=== PATIENT | male | born 1960 | race Caucasian/White ===

== ENCOUNTER 2018-12-01 09:00 | Outpatient (RCR) | payer OTHER, SELFPAY ==
--- NOTE | 2018-10-26 11:15 | HP.OTEVAL_ITS ---
Patient's Visit Information CORWIN REDD Jr. is a 58 year old M, referred to Occupational Therapy by LEMUEL BLACKWELL, with a diagnosis of left IF laceration of FDS/FDP. Date of Evaluation: 10/19/18 Occupational Therapist: Susan Cruz, MARIA ELENAR/L, CHT - Subjective Subjective: Pt states on 2018, pt was replacing a motor and his left digits were pinched between metal of a motor - slicing left IF. pts sx repair of zone 2 FDS/FDP and pully was on 10/06/18. pt currently 2 weeks s/p- pt arrives with dorsal blocking orthosis. pt works at [employer]. Pt is hopeful to regain his full ROM and return work. - ADLs Dressing: Button shirt, Pants Fasteners: Buttons, Zippers, [place] Eating: Use silverware, Cut food Bathing: Handle washcloth & soap, Wash hair, Squeeze shampoo bottle Toileting: Manage clothing Grooming: Trim roberts, Squeeze toothpaste on, [place] teeth Comments: it doing all meal prep tasks Comments: due to restrictions and healing tendon repair- pt requires assist with ADLs and IADLs at this time. - Pain left hand 0 Pain Intensity Range: 0, 4, 5 - Objective Objective/Observation: healing incision- clean and dry - ROM MP: left IF 70 right 0/85 PIP: left IF 0/30 left 0/90 DIP: left IF 0/10 right 0/45 - Strength Strength Comments: Not tested at this time - Edema PIP: right IF 6.5 left 7.8 - Sensation Sensation Comments: over incision - Quick DASH-Disab of Arm,Shoulder& Hand Quick DASH Score: 63.3325 - Goals Goal:100% adherence to protocol: Yes Comment: FDS/FDP zone 2 Goal:Daily scar massage when approriate: Yes Goal:ROM equal to unaffected hand: Yes Goal:[employer] Goods Fabricator/Pinch strength at least 75% of unaffected hand: Yes Goal:No pain with affected hand use: Yes Goal:PIP Circumferences equal to unaffected hand: Yes Goal:Full use of affected hand in daily activities including: Yes Goal:Decrease scar hypersensitivity: Yes - Rehabilitation General Assessment: pt is currently 2 weeks s/p from a left IF FDS/FDP and pully reconstruction zone 2. incision is clean and dry- sutures on ulnar side and steri strips on radial side intact. pt demo with edeam and limted ROM to use left UE for ADLs and IADLS. Dr. riley sanderson/alpa, AAROM, AROM digits, edema reduction techniques, desensitization/sensory retraining and scar management- Dorsal blocking orthosis for 6 weeks, cut down to wrist at 4 weeks s/p. Pt would benefit from skilled OTR/L, CHT services 2x week for 6 weeks to insturct pt in tendon repair protocol, and ed. pt on AAROM, AROM of digits, scar mtg and when able PRE to reuturn pt to PLOF. Today pt was ed. on AAROM, AROM and edema control viktor. pt demo understanding of ex. Therapist will follow zone 2 FDS/FDP protocol to return pt to PLOF. Rehabilitation Potential: Excellent - Anticipated Interventions Anticipated Interventions: Early Active Motion, A/AAROM/PROM, Strengthening, Edema Control, Scar Care, Massage, Triggerpoint Release, Desensitization, Sensory Retraining, Wound Care, Modalities, Orthoses, Fine Motor Coord/Gerardo - Visit Plan Frequency: 3x /Week Duration: 4 Months TEXT: Thank you for the opportunity to evaluate your patient. For Medicare and Medicare HMO plans, please review the plan of care and approve it. It will need to be FAXED BACK to us at [phone] for Medicare purposes. Please let me know if there are questions or concerns regarding this plan of care. Physician Signature: Date:
--- NOTE | 2018-11-08 12:25 | HP.OTREVAL ---
LEMUEL BLACKWELL, It has been my pleasure to treat CORWIN REDD . over the last 5 visits for left IF laceration of FDS/FDP. Please see the progress note below for an update on the occupational therapy plan of care! Subjective: pt arrives following a week without therapy. Pt now 4 weeks 5 days s/p A2 pully and FDP/FDS repair. pt states compliance with ROM and use of orthosis- pt states he feels a thickness in his finger, and has not noticed gains in IF tip ROM. pt is still concerned with the incident where he reached for a straw and felt a pop. Objective/Function: Left IF DIP 0/15. left IF PIP -5/90. no gain in active DIP flex at this time- therapist questioning if pt is scared vs loss of repair. Rec'd pt to return to dr for further evaluation/recomendations. Plan Frequency: 3x /Week Duration: 4 Months Plan: pt at 4 weeks 5 days s/p- advised pt to return to dr. for further evaluation/recomendations..as pt has not gained ROM at this time. Anticipated Interventions Anticipated Interventions: Early Active Motion, A/AAROM/PROM, Strengthening, Edema Control, Scar Care, Massage, Triggerpoint Release, Desensitization, Sensory Retraining, Wound Care, Modalities, Orthoses, Fine Motor Coord/Gerardo Please do not hesitate to contact me at [phone] by phone or if you have questions or concerns regarding this new plan of care! Sincerely, Susan Cruz, OTR/L, CHT
--- NOTE | 2018-11-25 13:06 | HP.OTREVAL ---
LEMUEL BLACKWELL, It has been my pleasure to treat CORWIN REDD . over the last 9 visits for left IF laceration of FDS/FDP. Please see the progress note below for an update on the occupational therapy plan of care! Subjective: pt states the joann splint does help keep his fingers together and IF from sticking out. pt reports he is performing blocking and scar mtg at home. No change in active DIP flexion Objective/Function: pt demo no active DIP flex. Passive is WNL. with blocking about 10*. pt contiues to have scar sensitivity/hypertrophic questioning if scar has adhered to tendon vs rupture? please re eval and let me know what you think. Plan Frequency: 3x /Week Duration: 4 Months Plan: cont with protocol-. scar mtg, blocking FES, US Anticipated Interventions Anticipated Interventions: Early Active Motion, A/AAROM/PROM, Strengthening, Edema Control, Scar Care, Massage, Triggerpoint Release, Desensitization, Sensory Retraining, Wound Care, Modalities, Orthoses, Fine Motor Coord/Gerardo Please do not hesitate to contact me at [phone] by phone or if you have questions or concerns regarding this new plan of care! Sincerely, Susan Cruz, OTR/L, CHT
--- NOTE | 2018-11-25 13:10 | OTREVAL_ITS ---
LEMUEL BLACKWELL, It has been my pleasure to treat CORWIN REDD . over the last 9 visits for left IF laceration of FDS/FDP. Please see the progress note below for an update on the occupational therapy plan of care! Subjective: pt states the joann splint does help keep his fingers together and IF from sticking out. pt reports he is performing blocking and scar mtg at home. No change in active DIP flexion Objective/Function: pt demo no active DIP flex. Passive is WNL. with blocking about 10*. pt contiues to have scar sensitivity/hypertrophic questioning if scar has adhered to tendon vs rupture? please re eval and let me know what you think. Plan Frequency: 3x /Week Duration: 4 Months Plan: cont with protocol-. scar mtg, blocking FES, US Anticipated Interventions Anticipated Interventions: Early Active Motion, A/AAROM/PROM, Strengthening, Edema Control, Scar Care, Massage, Triggerpoint Release, Desensitization, Sensory Retraining, Wound Care, Modalities, Orthoses, Fine Motor Coord/Gerardo Please do not hesitate to contact me at [phone] by phone or if you have questions or concerns regarding this new plan of care! Sincerely, Susan Cruz, OTR/L, CHT
--- NOTE | 2019-01-19 14:42 | HP.OTDCSUM_ITS ---
HP - OT D/C Summary It has been my pleasure to treat CORWIN REDD . under orders from LEMUEL BLACKWELL, for the diagnosis of left IF laceration of FDS/FDP for a total of 11 visit(s). Please see the following information for a summary of their discharge status. - Objective Objective/Function: pt demo no active DIP flex. Passive is WNL. with blocking about 10*. pt contiues to have scar sensitivity/hypertrophic questioning if scar has adhered to tendon vs rupture? please re eval and let me know what you think. - Goals Patient Goals: Regain Mobility, Regain Strength, Return to Work, Decrease Swelling/Stiffness, Improve Fine Motor Skills, Use Hand/Wrist/Arm Normally Again, Increase ROM, Be More Independent in ADLS Goal:100% adherence to protocol: Yes Goal:Daily scar massage when approriate: Yes Goal:ROM equal to unaffected hand: Yes Goal:Social Work Professor/Pinch strength at least 75% of unaffected hand: Yes Goal:No pain with affected hand use: Yes Goal:PIP Circumferences equal to unaffected hand: Yes Goal:Full use of affected hand in daily activities including: Yes Goal:Decrease scar hypersensitivity: Yes - Plan Plan: C9 approval for tx ended pt waiting on MRI and will follow up with - D/C Information If there are questions or concerns regarding this patient's occupational therapy, please fell free to call me at [phone]. Thank you for the referral of this patient. Sincerely, Susan Cruz, OTR/L, CHT
== END 2018-12-01 19:00 | disposition home or self-care (01) ==
LOC: OT 09:00
DX: S61.402D Unspecified open wound of left hand, subsequent encounter (principal); S86.8 Injury of other muscles and tendons at lower leg level
CPT/HCPCS: 97035; 97110; 97140; 97166; 97760